=== PATIENT | female | born 2000 | race Caucasian/White ===

== ENCOUNTER 2022-12-15 08:00 | Outpatient (CLI) | payer BC ==
[2022-12-15 20:52] LABS: BACTERIAL VAGINOSIS DNA POSITIVE (NEGATIVE); CANDIDA GLABRATA DNA NEGATIVE (NEGATIVE); CANDIDA GROUP DNA POSITIVE (NEGATIVE); CANDIDA KRUSEI DNA NEGATIVE (NEGATIVE); TRICHOMONAS VAGINALIS DNA NEGATIVE (NEGATIVE)
[2022-12-15 21:58] LABS: CHLAMYDIA TRACHOMATIS DNA NEGATIVE (NEGATIVE); NEISSERIA GONORRHOEAE DNA NEGATIVE (NEGATIVE)
== END 2022-12-15 23:59 | disposition home or self-care (01) ==
LOC: LAB.N 08:00
PROVIDERS: ATTEND Physician Assistant Medical
DX: N76.0 Acute vaginitis (principal)
CPT/HCPCS: 81514; 87491; 87591; 87661

== ENCOUNTER 2023-09-30 18:00 | Outpatient (CLI) | payer BC | END 2023-09-30 18:15 | disposition home or self-care (01) | LOC: LAB.N 18:00 | PROVIDERS: ATTEND Physician Assistant Medical | DX: N30.00 Acute cystitis without hematuria (principal) | CPT/HCPCS: 87086 ==

== ENCOUNTER 2023-10-06 14:03 | Emergency (ER) | payer BC ==
[2023-10-06 14:47] LABS: BASOPHILS # (AUTO) 0.1 10^3/uL (0.0-0.1); BASOPHILS % (AUTO) 0.4 %; EOSINOPHILS % (AUTO) 0.2 %; HCT - HEMATOCRIT 35.1 % (37.0-47.0); HGB - HEMOGLOBIN 11.1 g/dL (12.0-16.0); LYMPHOCYTES # (AUTO) 1.7 10^3/uL (1.5-3.5); LYMPHOCYTES % (AUTO) 13.2 %; MEAN CORPUSCULAR HEMOGLOBIN 26.2 pg (27.0-31.0); MEAN CORPUSCULAR HGB CONC 31.6 g/dL (32.0-36.0); MEAN CORPUSCULAR VOLUME 82.8 fL (81.0-99.0); MEAN PLATELET VOLUME 8.9 fL (7.9-10.8); MONOCYTES # (AUTO) 1.2 10^3/uL (0.0-1.0); MONOCYTES % (AUTO) 9.4 %; NEUTROPHILS # (AUTO) 9.9 10^3/uL (1.5-6.6); NEUTROPHILS % (AUTO) 76.3 %; PLT - PLATELET COUNT 361 10^3/uL (130-450); RED BLOOD COUNT 4.24 10^6/uL (4.20-5.40); RED CELL DISTRIBUTION WIDTH 12.6 % (12.0-15.0); WHITE BLOOD COUNT 12.9 x10^3/uL (4.8-10.8)
[2023-10-06 15:01] LABS: ALBUMIN 4.2 g/dL (3.2-5.5); ALBUMIN/GLOBULIN RATIO 1.3 (1.0-2.2); BILIRUBIN,TOTAL 0.4 mg/dL (0.2-1.0); CALCIUM 9.1 mg/dL (8.5-10.3); CREATININE 0.8 mg/dL (0.6-1.3); POTASSIUM 3.9 mmol/L (3.5-4.5); TOTAL PROTEIN 7.5 g/dL (6.4-8.9)
--- NOTE | 2023-10-06 15:27 | ED Physician Documentation ---
PD HPI FEMALE - Stated complaint Stated Complaint: - Chief complaint Chief Complaint: Abd Pain - History obtained from History obtained from: Patient, Family - History of Present Illness Timing - onset: How many weeks ago (1) Timing - duration: Weeks (1) Timing - details: Still present (has not improved despite PO Bactrim which should have been effective based on culture.) Associated symptoms: Abdominal pain (lower abd and left flank in particular.), Dysuria, Urinary frequency. No: Fever, Vaginal bleeding, Vaginal discharge Recently seen: Clinic (She was seen 1 week ago in the walk-in clinic for frequency of urine and urinalysis showed a UTI. Subsequent culture showed ESBL E. coli sensitive to Bactrim. She was prescribed Bactrim DS twice daily for 3 days. She states minimal improvement and now worsening symptoms.) Review of Systems Constitutional: reports: Chills, Myalgias, Fatigue. denies: Fever Nose: denies: Rhinorrhea / runny nose, Congestion Throat: denies: Sore throat Respiratory: denies: Cough GI: reports: Abdominal Pain, Nausea. denies: Diarrhea : reports: Dysuria, Frequency. denies: Discharge, Vaginal bleeding PD PAST MEDICAL HISTORY - Past Medical History Cardiovascular: None Respiratory: None - Past Surgical History Past Surgical History: No - Present Medications Home Medications: Ambulatory Orders Medication Instructions Recorded Confirmed Ondansetron Odt [Zofran] 4 mg TL Q6H PRN #10 tablet 02/12/22 Oxycodone HCl/Acetaminophen 1 each PO Q6H PRN #8 tablet 02/12/22 [Percocet 5-325 mg Tablet] Ciprofloxacin HCl [Cipro] 500 mg PO BID #20 tablet 10/06/23 HYDROcod/ACETAM 5/325 [Mereta 5/325] 1 ea PO Q6H PRN #12 tablet 10/06/23 HYDROcod/ACETAM 5/325 [Mereta 5/325] 1 ea PO Q6H PRN #14 tablet 10/06/23 Naproxen 500 mg PO BID #15 tab 10/06/23 Phenazopyridine HCl [Pyridium] 100 mg PO TID PRN #15 tablet 10/06/23 - Allergies Allergies/Adverse Reactions: Allergies Allergy/AdvReac Type Severity Reaction Status Date / Time No Known Drug Allergies Allergy Verified 10/06/23 14:27 - Social History Does the pt smoke?: No Smoking Status: Never smoker Does the pt drink ETOH?: No Does the pt have substance abuse?: No - Immunizations Immunizations are current?: Yes PD ED PE NORMAL - Vitals Vital signs reviewed: Yes - General General: Alert and oriented X 3, No acute distress, Well developed/nourished - Cardiac Cardiac: No murmur. No: RRR (tachycardic but regular. ) - Respiratory Respiratory: No respiratory distress, Clear bilaterally - Abdomen Abdomen: Normal bowel sounds, Soft, Non distended, No organomegaly, Other (some tenderness suprapubic area and left flank without guarding nor percussion tender. ) Results - Vitals Vitals: Vital Signs - 24 hr 10/06/23 10/06/23 10/06/23 14:27 16:40 17:45 Temperature 37.7 C 37.0 C 36.8 C Heart Rate 123 H 111 H 101 H Respiratory 16 18 18 Rate Blood Pressure 149/92 H 140/91 H 131/92 H O2 Saturation 100 99 100 Oxygen O2 Source Room air - Labs Labs: Laboratory Tests 10/06/23 10/06/23 10/06/23 14:42 14:42 14:50 WBC 12.9 H RBC 4.24 Hgb 11.1 L Hct 35.1 L MCV 82.8 MCH 26.2 L MCHC 31.6 L RDW 12.6 Plt Count 361 MPV 8.9 Neut # (Auto) 9.9 H Lymph # (Auto) 1.7 Jack # (Auto) 1.2 H Eos # (Auto) 0.0 Baso # (Auto) 0.1 Absolute Nucleated RBC 0.00 Nucleated RBC % 0.0 Sodium 134 L Potassium 3.9 Chloride 98 L Carbon Dioxide 28 Anion Gap 8.0 BUN 7 Creatinine 0.8 Estimated GFR (MDRD) 91 Glucose 109 H Calcium 9.1 Total Bilirubin 0.4 AST 8 L ALT 10 Alkaline Phosphatase 57 Total Protein 7.5 Albumin 4.2 Globulin 3.3 Albumin/Globulin Ratio 1.3 Lipase 10 L Urine Color YELLOW Urine Clarity HAZY Urine pH 6.0 Ur Specific [place] 1.015 Urine Protein NEGATIVE Urine Glucose (UA) NEGATIVE Urine Ketones NEGATIVE Urine Occult Blood SMALL H Urine Nitrite POSITIVE H Urine Bilirubin NEGATIVE Urine Urobilinogen 0.2 (NORMAL) Ur Leukocyte Esterase SMALL H Urine RBC 11-25 H Urine WBC >25 H Urine WBC Clumps PRESENT Ur Squamous Epith Cells MANY Squamous H Urine Bacteria Many H Ur Microscopic Review INDICATED Urine Culture Comments NOT INDICATED Urine HCG, Qual NEGATIVE PD Medical Decision Making - ED course Complexity details: reviewed old records (urine culture from 09/30/23 showing ESBL E Coli sensitive to Bactrim, Cipro, rocephin among others. ) ED course: The patient was seen at the walk-in and treated for UTI. Culture showed an ESBL E. coli sensitive to Bactrim which she had been prescribed. She was prescribed a 3-day course and states she had minimal improvement during that time and has had worse symptoms since finishing it 2 days ago. Having flank pain nausea chills and general malaise. No diarrhea. Her urine still shows signs of significant infection so looks like the Bactrim was not really effective at all or not enough. Consideration of different antibiotic versus longer duration and I would based on that as well as her white count and such go with a different antibiotic. Her urine culture was sensitive to ciprofloxacin. She was given a IV dose here of 400 mg. She was also given Toradol, liter of fluids, Zofran and some pain medicine. She is feeling improved at this time. She is able to take oral fluids. Her heart rate has improved. She does not look to need hospitalization for her [place]. I considered imaging such as CT or ultrasound but her flank pain developed after the initial urinary tract symptoms and I would really doubt a concurrent stone or such. She would prefer not to have imaging. The patient will be discharged after finishing of the IV antibiotics and fluids. She is taking sips of water here. Departure - Departure Disposition: 01 Home, Self Care Clinical Impression: Pyelonephritis Condition: Stable Record reviewed to determine appropriate education?: Yes Instructions: ED Kidney Infec Female Prescriptions: Ciprofloxacin HCl [Cipro] 500 mg PO BID #20 tablet Naproxen 500 mg PO BID #15 tab HYDROcod/ACETAM 5/325 [Mereta 5/325] 1 ea PO Q6H PRN #12 tablet PRN Reason: Pain HYDROcod/ACETAM 5/325 [Mereta 5/325] 1 ea PO Q6H PRN #14 tablet PRN Reason: Pain Phenazopyridine HCl [Pyridium] 100 mg PO TID PRN #15 tablet PRN Reason: Abdominal Pain Comments: Your urine test still shows significant signs of infection. Not only did the prior antibiotic probably sound not long enough but it actually looks like it did not really work effectively on the infection. Based on the urine culture from the walk-in clinic, it should have been effective on the germ that you have. However clinically it does not seem to have, so I would change to a dif ferent antibiotic that should also be effective based on the culture. You are given a dose of ciprofloxacin IV here. This should help give a good beginning start on the treatment. I sent a prescription for twice daily for 1 week to your pharmacy. For symptoms, you can use phenazopyridine 3 times daily for the first several days to help with some of the discomfort. Also naproxen anti-inflammatory to help with pains and discomfort. Add Tylenol 500 650 mg every 4-6 hours if needed for pain as well. Lastly add hydrocodone if needed for worse pain. I prescribed a small amount of that for the pains. I sent these to your preferred pharmacy, which was listed as [facility] in [place] (where prior script was sent). Stay well-hydrated. Return if worsening symptoms or not improved well over the next 2 or 3 days and resolved by 3 to 5 days. I am prescribing a short course of narcotic pain medication for you. These are potentially dangerous and addictive medications that should be used carefully. These medications may constipate you. Take an [id number] stool softener such as docusate twice daily with plenty of water while taking these medications. If you go 24 hours without a bowel movement, take [id number] MiraLAX, per package instructions. Do not drink or drive while taking these medications. If you received narcotic or sedating medications while in the emergency department do not drive for 24 hours. Store this medication in a safe, secure place and out of reach of children. It is a violation of federal law to give or sell this medication to another person or to use in a manner other than prescribed. The ED will not refill narcotic prescriptions, including prescriptions lost or stolen. You can dispose of unwanted medications at the [facility]'s office or at several pharmacies such as [facility]. Forms: PCP List Discharge Date/Time: 10/06/23 17:45
[2023-10-06 15:36] LABS: BILIRUBIN,URINE NEGATIVE (NEGATIVE); GLUCOSE, URINE (UA) NEGATIVE (NEGATIVE); KETONES,URINE (UA) NEGATIVE (NEGATIVE); LEUKOCYTE ESTERASE, URINE SMALL (NEGATIVE); NITRITE,URINE POSITIVE (NEGATIVE); OCCULT BLOOD,URINE SMALL (NEGATIVE); PROTEIN,URINE NEGATIVE (NEGATIVE); UROBILINOGEN,URINE 0.2 (NORMAL) E.U./dL (NORMAL)
[2023-10-06 15:37] LABS: CLARITY,URINE HAZY (CLEAR); HCG UR QUAL NEGATIVE
[2023-10-06 15:44] LABS: BACTERIA,URINE Many /HPF (None Seen); SQUAMOUS EPITHELIAL CELL,UR MANY Squamous (<= Few); WBC CLUMPS,URINE PRESENT; WBC,URINE >25 /HPF (0-5)
[2023-10-06] MEDS: KETOROLAC 15 MG/ML VIAL IVP STA (16:28)
[2023-10-06] MEDS: CIPROFLOXACIN 400 MG/200 ML 400 MG/200 ML BAG IV STA (16:28)
[2023-10-06] MEDS: SODIUM CHLORIDE 0.9% 1,000 ML IV STA (16:29)
[2023-10-06] MEDS: ONDANSETRON 4 MG/2 ML VIAL IVP STA (16:29)
[2023-10-06 17:46] VITALS: BP 131/92; O2SAT 100
== END 2023-10-06 17:45 | disposition home or self-care (01) ==
LOC: ED 14:03
DX: N12 Tubulo-interstitial nephritis, not specified as acute or chronic (principal); Z79.899 Other long term (current) drug therapy
CPT/HCPCS: 36415; 80053; 81001; 81003; 81025; 83690; 85025; 87086; 96365; 96375; 99283